=== PATIENT | female | born 1975 | race Asian ===

== ENCOUNTER → 2016-09-27 | Outpatient (CLI) | payer OTHER ==
[2016-09-29 20:48] LABS: GC DNA N.A. AMPLIFY Negative (Negative)
== END | disposition home or self-care (01) ==
LOC: LABPV 10:10
PROVIDERS: ATTEND Family Medicine
DX: Z02.89 Encounter for other administrative examinations (principal)
CPT/HCPCS: 86480; 86592; 86735; 86762; 86765; 86787; 87491; 87591